=== PATIENT | female | born 1950 | race Caucasian/White ===

== ENCOUNTER → 2016-11-09 | Outpatient (CLI) | payer OTHER, MEDICARE ==
[~2016-11-09] MED LIST: AMLO10TA2 PO; ASPEC81 PO; LISI40TA PO; MAGN400T5 PO; MULT-506 PO
== END | disposition home or self-care (01) ==
LOC: C.RDSM 13:00
PROVIDERS: ATTEND Physical Medicine & Rehabilitation Sports Medicine
DX: M25.561 Pain in right knee (principal)

== ENCOUNTER → 2017-05-10 | Outpatient (CLI) | payer OTHER, MEDICARE | END | disposition home or self-care (01) | LOC: C.RDSM 15:40 | PROVIDERS: ATTEND Physical Medicine & Rehabilitation Sports Medicine | DX: G57.81 Other specified mononeuropathies of right lower limb (principal); Z96.651 Presence of right artificial knee joint ==

== ENCOUNTER → 2017-11-08 | Outpatient (CLI) | payer OTHER, MEDICARE | END | disposition home or self-care (01) | LOC: C.RDSM 13:00 | PROVIDERS: ATTEND Physical Medicine & Rehabilitation Sports Medicine | DX: Z96.651 Presence of right artificial knee joint (principal) ==

== ENCOUNTER → 2017-11-11 | Outpatient (CLI) | payer OTHER, MEDICARE ==
--- NOTE | 2017-11-11 21:14 | DIAGNOSTIC IMAGING REPORT ---
BONE SCAN 3 PHASE LIMITED CLINICAL HISTORY: 67 years-old Female presenting with S/P RT KNEE REPLACEMENT. TECHNIQUE: Following the IV administration of 27.2 mCi of technetium 99m MDP, three-phase bone scan of the knees was performed. Anterior flow images as well as anterior and posterior blood pool phase images were acquired. Bone phase imaging of knees was performed at three hours in multiple obliquities. COMPARISON: 07/13/2016. FINDINGS: On initial flow imaging, radiotracer in the bilateral vasculature is symmetric. However, there is poorly asymmetric radiotracer uptake in the region of the right knee. On subsequent blood pool phase imaging, persistent asymmetric radiotracer uptake in a periprosthetic distribution right knee. Photopenia consistent with total right knee arthroplasty. On bone phase imaging, persistent asymmetric periprosthetic abnormal radiotracer uptake most prominently along the tibial plateau component of the right total knee arthroplasty. Minimal uptake at the trochlear region of the left femur likely degenerative in etiology. IMPRESSION: Three-phase positive bone scan in a periprosthetic distribution at the total right knee arthroplasty, which raises concern for infection. This could also represent loosening, although this would be less commonly three-phase positive. To differentiate these entities, a sulfur colloid nuclear medicine scan of the knees may be helpful, which would be expected to be photopenic in the setting of infection. Blood cell nuclear medicine scan would be nonspecific in the setting of either reactive marrow or infection. The report will be called/faxed according to standard departmental protocol. Electronically signed by: Alvarado Montague M.D. 11/11/2017 9:13 PM Dictated Date/Time: 11/11/2017 9:07 PM
== END | disposition home or self-care (01) ==
LOC: C.NUCL 16:48
PROVIDERS: ATTEND Physical Medicine & Rehabilitation Sports Medicine
DX: Z96.651 Presence of right artificial knee joint (principal)